=== PATIENT | male | born 1985 | race Caucasian/White ===

== ENCOUNTER 2019-09-23 10:33 | Emergency (ER) | payer BC, SELFPAY ==
[2019-09-23] MEDS ORDERED: Gentamicin Ophth Soln 0.3% 5 ml Bottle ONE (10:54)
== END 2019-09-23 11:05 | disposition home or self-care (01) ==
LOC: NAV ERS 10:33
DX: H10.9 Unspecified conjunctivitis (principal); F41.9 Anxiety disorder, unspecified; Z79.899 Other long term (current) drug therapy
CPT/HCPCS: 99282